=== PATIENT | female | born 1990 | race African-American/Black ===

== ENCOUNTER 2017-03-12 18:34 | Emergency (ER) | payer MEDICAID, OTHER ==
[~2017-03-12] VITALS: Ht 160 cm; Wt 104.5 kg
[2017-03-12 18:36] VITALS: Ht 160 cm; Wt 104.5 kg
[2017-03-12] MEDS ORDERED: KETOROLAC 60 MG INJ IM STA (19:18)
[2017-03-12] MEDS ORDERED: HYDROCODONE/APAP (5/325) TAB PO ONE (19:30)
[2017-03-12] MEDS ORDERED: RANI150T9 PO (19:35)
[2017-03-12] MEDS ORDERED: NAPR-688 PO (21:22)
[2017-03-12] MEDS ORDERED: POLY17PO6 PO (21:22)
[2017-03-12] MEDS ORDERED: HYDR-906 PO (21:22)
--- NOTE | 2017-03-12 21:37 | ERD ---
ER Documentation Chief Complaint Date/Time DATE: 03/12/17 TIME: 21:30 Chief Complaint abdirizak slipped and fell on her tailbone HPI This 26-year-old female: Ambulance after she was running at work when her foot slipped and she fell onto her butt. She states that she already had a bad back it was made worse by the fall. Denies pain in any other part of her body. Pain is in her mid lower back as well as both sides. ROS All systems reviewed and are negative except as per history of present illness. Medications Home Meds Active Scripts Polyethylene Glycol* (Miralax*) 17 Gm Powd.pack, 17 GM PO DAILY for CONSTIPATION , #7 Prov:SAGRARIO VALIENTE DO 03/12/17 Hydrocodone/Acetaminophen ([place] 5-325 Tablet) 1 Each Tablet, 1 EACH PO Q6, #10 TAB Prov:SAGRARIO VALIENTE DO 03/12/17 Naproxen* (Naproxen*) 500 Mg Tablet, 500 MG PO BID Y for PAIN, #20 TAB Prov:SAGRARIO VALIENTE DO 03/12/17 Reported Medications Ranitidine Hcl* (Zantac*) Unknown Strength Tablet, PO DAILY, #30 TAB 03/12/17 Allergies Allergies: Coded Allergies: No Known Allergy (Unverified , 03/12/17) PMhx/Soc Medical and Surgical Hx: pt denies Medical Hx, pt denies Surgical Hx Hx Alcohol Use: No Hx Substance Use: No Hx Tobacco Use: No Smoking Status: Never smoker Physical Exam Vitals Vital Signs Date Time Temp Pulse Resp B/P Pulse Ox O2 Delivery O2 Flow Rate FiO2 03/12/17 18:36 98.2 96 20 115/70 100 Physical Exam Const: [] No distress Head: Atraumatic Eyes: Normal Conjunctiva, EOMI, PRL ENT: Normal External Ears, Nose and Mouth. Neck: Full range of motion without pain. Skin: No petechiae or rashes Back: No midline or flank tenderness, cries out in pain when barely touching the skin of her back. Distraction has no midline tenderness. Neur: Awake and alert and oriented 3, no focal deficits, ambulatory in ER with normal gait. Results 24 hrs Current Medications Medications (Trade) Dose Ordered Sig/Albert Route PRN Reason Start Time Stop Time Status Last Admin Dose Admin Ketorolac Tromethamine (Toradol) 60 mg ONCE STAT IM 03/12/17 19:18 03/12/17 19:21 DC 03/12/17 20:32 Acetaminophen/ Hydrocodone Bitart ([place] (5/325)) 1 tab ONCE ONCE PO 03/12/17 19:30 03/12/17 19:31 DC 03/12/17 19:55 Procedures/MDM Mechanical fall resulting in exacerbation of chronic lower back pain. Patient was given 60 mg of Toradol and [place] in the emergency room. After that she was laughing and ambulating. She told me that she had still never seen a doctor. Incidentally I do see stool throughout her colon on the lumbar series. I am going to discharge with MiraLAX in addition to naproxen and [place]. Primary care follow-up in 2-3 days and return precautions Lumbar x-ray interpretation: See no acute fracture dislocation or loss of disc height. Do see stool throughout parts of visualized colon Departure Diagnosis: Primary Impression: Low back strain Additional Impressions: Fall Morbid obesity with BMI of 40.0-44.9, adult Condition: Stable Patient Instructions: Back Sprain/Strain, Constipation (Adult), Fall, Mechanical Referrals: [facility] YOU HAVE RECEIVED A MEDICAL SCREENING EXAM AND THE RESULTS INDICATE THAT YOU DO NOT HAVE A CONDITION THAT REQUIRES URGENT TREATMENT IN THE EMERGENCY DEPARTMENT. FURTHER EVALUATION AND TREATMENT OF YOUR CONDITION CAN WAIT UNTIL YOU ARE SEEN IN YOUR DOCTORS OFFICE WITHIN THE NEXT 1-2 DAYS. IT IS YOUR RESPONSIBILITY TO MAKE AN APPOINTMENT FOR FOLOW-UP CARE. IF YOU HAVE A PRIMARY DOCTOR --you should call your primary doctor and schedule an appointment IF YOU DO NOT HAVE A PRIMARY DOCTOR YOU CAN CALL OUR PHYSICIAN REFERRAL HOTLINE AT IF YOU CAN NOT AFFORD TO SEE A PHYSICIAN YOU CAN CHOSE FROM THE FOLLOWING [facility] [address] [facility]. [facility] [address] [facility]. [facility] [address] [facility] [facility] [address] [facility]. [facility] [address] [facility]. [facility]. [address] Additional Instructions: Call your primary care doctor TOMORROW for an appointment during the next 2-3 days.See the doctor sooner or return here if your condition worsens before your appointment time. SAGRARIO VALIENTE DO Mar 12, 2017 21:37
--- NOTE | 2017-03-12 21:44 | RADRPT ---
PROCEDURE: XR Lumbar Spine. CLINICAL INDICATION: Fall with low back pain. TECHNIQUE: AP, lateral and cone-down lateral view of the lumbar spine were obtained. COMPARISON: No prior studies are available for comparison. FINDINGS: There is normal vertebral mineralization and alignment. No fracture or subluxation is seen. The disc spaces are normal in appearance. The posterior elements are unremarkable. The soft tissues appear normal. IMPRESSION: Unremarkable lumbar spine. RPTAT: [facility] Physician Candis Date Time Electronically viewed and signed by Physician Candis on 03/12/2017 21:44 RS/
== END 2017-03-12 22:01 | disposition home or self-care (01) ==
LOC: E/R 18:34
DX: S39.012A Strain of muscle, fascia and tendon of lower back, initial encounter (principal); E66.01 Morbid (severe) obesity due to excess calories; W01.0XXA Fall on same level from slipping, tripping and stumbling without subsequent striking against object, initial encounter; Y92.89 Other specified places as the place of occurrence of the external cause; Z68.41 Body mass index [BMI] 40.0-44.9, adult
CPT/HCPCS: 72100; J1885; Z7610; 96372